=== PATIENT | female | born 1950 | race Caucasian/White ===

== ENCOUNTER 2022-04-28 16:29 | Emergency (ER) | payer MEDICARE, BC ==
[2022-04-28] MEDS ORDERED: Ondansetron PF 4 MG/2 ML Vial ONE (17:42)
[2022-04-28] MEDS ORDERED: Famotidine/PF 20 mg/2ml Vial ONE (17:43)
[2022-04-28] MEDS ORDERED: Pantoprazole 40 MG VIAL ONE (17:43)
[2022-04-28] MEDS ORDERED: Famotidine 20 MG TAB ONE (17:48)
[2022-04-28 18:05] LABS: #Monocytes 0.2 10x3/uL (0.0-1.1); #Neutrophils 5.9 10x3/uL (1.5-8.4); %Basophils 0.2 % (0.0-2.0); %Eosinophils 0.6 % (0.0-6.0); %Lymphocytes 4.6 % (18.0-47.0); %Monocytes 2.9 % (0.0-10.0); %Neutrophils 91.4 % (40.0-75.0); Hemoglobin 14.6 g/dL (12.0-15.5); Mean Corpuscular Volume 97.1 fl (81.6-98.3); Mean Platelet Volume 9.2 fl (7.4-10.4); Platelet Count 248 10x3/uL (150-450); Red Blood Cell (RBC) Count 4.43 10x6/uL (3.90-5.03); White Blood Cell (WBC) Count 6.5 10x3/uL (3.5-10.5)
[2022-04-28 18:17] LABS: ALT (SGPT) 12 U/L (8-55); AST (SGOT) 19 U/L (5-34); Albumin 3.7 g/dL (3.4-4.8); Alkaline Phosphatase 72 U/L (40-110); Anion Gap 11 mmol/L (10-20); BUN (Urea Nitrogen) 16 mg/dL (9.8-20.1); Bilirubin, Total 0.6 mg/dL (0.2-1.2); Calc. Creatinine Clearance 0 mL/min (70-130); Calcium 8.9 mg/dL (7.8-10.44); Carbon Dioxide 24 mmol/L (23-31); Chloride 107 mmol/L (98-107); Estimated GFR 86; Globulin 2.6 g/dL (2.4-3.5); Glucose 113 mg/dL (83-110); Potassium 4.1 mmol/L (3.5-5.1); Protein, Total 6.3 g/dL (5.8-8.1); Sodium 138 mmol/L (136-145)
[2022-04-28] MEDS ORDERED: Mag-Al Plus 1200 MG/1200 MG/120 MG/30 ML UDCUP ONE (18:27)
[2022-04-28] MEDS ORDERED: Lidocaine Viscous Sol 2% 15 ml UD Cup ONE (18:27)
== END 2022-04-28 19:17 | disposition home or self-care (01) ==
LOC: CSHERS 16:29
DX: R11.2 Nausea with vomiting, unspecified (principal); R19.7 Diarrhea, unspecified; R10.13 Epigastric pain; E03.9 Hypothyroidism, unspecified; K21.9 Gastro-esophageal reflux disease without esophagitis; I10 Essential (primary) hypertension; E78.5 Hyperlipidemia, unspecified; Z79.899 Other long term (current) drug therapy
CPT/HCPCS: 36415; 80053; 82274; 83605; 85025; 86850; 86900; 86901; 96361; 96374; C9113; J2405; S0028

== ENCOUNTER 2022-09-29 10:39 | Outpatient (CLI) | payer MEDICARE, BC | END 2022-09-29 10:40 | disposition home or self-care (01) | LOC: CSHMAMMO 10:39 | PROVIDERS: ATTEND Internal Medicine | DX: Z12.31 Encounter for screening mammogram for malignant neoplasm of breast (principal); Z98.890 Other specified postprocedural states; Z91.89 Other specified personal risk factors, not elsewhere classified | CPT/HCPCS: 77063; 77067 ==

== ENCOUNTER 2023-05-13 11:16 | Outpatient (CLI) | payer MEDICARE, BC | END 2023-05-13 11:17 | disposition home or self-care (01) | LOC: CSHULT 11:16 | PROVIDERS: ATTEND Family Medicine | DX: R10.11 Right upper quadrant pain (principal) | CPT/HCPCS: 76705 ==

== ENCOUNTER 2023-11-23 12:43 | Outpatient (CLI) | payer MEDICARE | END 2023-11-23 12:44 | disposition home or self-care (01) | LOC: CSHMAMMO 12:43 | PROVIDERS: ATTEND Family Medicine | DX: Z12.31 Encounter for screening mammogram for malignant neoplasm of breast (principal); Z91.89 Other specified personal risk factors, not elsewhere classified; Z98.890 Other specified postprocedural states | CPT/HCPCS: 77063; 77067 ==